=== PATIENT | male | born 1955 | race Caucasian/White ===

== ENCOUNTER → 2016-03-17 | Outpatient (CLI) | payer BC | LOC: OD 09:46 | PROVIDERS: ATTEND Internal Medicine | DX: E03.9 Hypothyroidism, unspecified (principal) | CPT/HCPCS: 36415; 84443 ==

== ENCOUNTER → 2017-04-04 | Outpatient (CLI) | payer BC ==
[2017-04-04 10:56] LABS: ABSOLUTE BASOPHILS # (AUTO) 0.1 10^3/uL (0.0-0.2); ABSOLUTE EOSINOPHILS # (AUTO) 0.1 10^3/uL (0.0-0.6); ABSOLUTE LYMPHOCYTES (AUTO) 3.4 10^3/uL (0.5-4.7); ABSOLUTE MONOCYTES (AUTO) 0.8 10^3/uL (0.1-1.4); ABSOLUTE NEUT (AUTO) 3.2 10^3/uL (1.7-8.2); EOSINOPHILS % (AUTO) 1.8 % (0-6); HEMATOCRIT 44.4 % (37.9-51.0); HEMOGLOBIN 15.5 g/dL (13.5-17.0); LYMPHOCYTES % (AUTO) 45.1 % (13-45); MEAN CORPUSCULAR HEMOGLOBIN 31.9 pg (27.0-33.4); MEAN CORPUSCULAR HGB CONC 34.9 g/dL (32.0-36.0); MEAN CORPUSCULAR VOLUME 92 fl (80-97); PLATELET COUNT 197 10^3/uL (150-450); RED BLOOD COUNT 4.85 10^6/uL (4.35-5.55); RED CELL DISTRIBUTION WIDTH 13.8 % (11.5-14.0); SEGMENTED NEUTROPHILS % (AUTO) 42.1 % (42-78); TOTAL CELLS COUNTED % (AUTO) 100 %; WHITE BLOOD COUNT 7.6 10^3/uL (4.0-10.5)
[2017-04-04 11:18] LABS: ALANINE AMINOTRANSFERASE 28 U/L (21-72); ALBUMIN 4.5 g/dL (3.5-5.0); ALKALINE PHOSPHATASE 43 U/L (38-126); ANION GAP 8 (5-19); ASPARTATE AMINO TRANSFERASE 28 U/L (17-59); BILIRUBIN,DIRECT 0.1 mg/dL (0.0-0.4); BILIRUBIN,TOTAL 0.7 mg/dL (0.2-1.3); BLOOD UREA NITROGEN 9 mg/dL (7-20); CALCIUM 9.9 mg/dL (8.4-10.2); CARBON DIOXIDE 26 mmol/L (22-30); CHLORIDE 106 mmol/L (98-107); CHOLESTEROL 203.33 mg/dL (0-200); GLUCOSE 110 mg/dL (75-110); POTASSIUM 4.4 mmol/L (3.6-5.0); SODIUM 139.9 mmol/L (137-145); TOTAL PROTEIN 7.8 g/dL (6.3-8.2); TRIGLYCERIDES 291 mg/dL (<150)
[2017-04-04 11:30] LABS: DIRECT LDL 107 mg/dL (<100)
[2017-04-04 11:32] LABS: FREE T3 3.46 pg/mL (2.77-5.27); FREE T4 (FREE THYROXINE) 1.24 ng/dL (0.78-2.19)
[2017-04-04 11:45] LABS: THYROID STIMULATING HORMONE 4.62 uIU/mL (0.47-4.68)
[2017-04-04 11:52] LABS: VLDL CHOLESTEROL 58.2 mg/dL (10-31)
[2017-04-05 13:46] LABS: INSULIN 35.1 uIU/mL (2.6-24.9)
== END ==
LOC: OD 10:10
PROVIDERS: ATTEND Internal Medicine
DX: E03.9 Hypothyroidism, unspecified (principal); I10 Essential (primary) hypertension; R53.83 Other fatigue; R35.1 Nocturia; E78.5 Hyperlipidemia, unspecified; R73.9 Hyperglycemia, unspecified
CPT/HCPCS: 36415; 80053; 80061; 83036; 83525; 84153; 84403; 84439; 84443; 84481; 85025

== ENCOUNTER → 2017-07-18 | Outpatient (CLI) | payer BC ==
[2017-07-18 09:04] LABS: CHOLESTEROL 149.15 mg/dL (0-200)
[2017-07-18 09:15] LABS: DIRECT LDL 50 mg/dL (<100)
[2017-07-18 09:28] LABS: TRIGLYCERIDES 725 mg/dL (<150)
== END ==
LOC: OD 07:09
PROVIDERS: ATTEND Internal Medicine
DX: E78.5 Hyperlipidemia, unspecified (principal); E03.9 Hypothyroidism, unspecified
CPT/HCPCS: 36415; 80061; 84443

== ENCOUNTER → 2017-12-26 | Outpatient (CLI) | payer BC ==
--- NOTE | 2017-12-26 10:51 | RADIOLOGY REPORT (SQ) ---
EXAM DESCRIPTION: U/S THYROID/SFT TISS HD NECK COMPLETED DATE/TIME: 12/26/2017 10:10 am REASON FOR STUDY: HYPOTHYROIDISM (E03.9) E03.9 HYPOTHYROIDISM, UNSPECIFIED H93.13 TINNITUS, BILATE RAL COMPARISON: None. TECHNIQUE: Dynamic and static crook-scale images acquired of the thyroid gland. Selected additional c olor/power Doppler images recorded. All images stored to PACS. LIMITATIONS: None. FINDINGS: No thyroid tissue present. No solid or cystic mass or other abnormal ultrasound findings. IMPRESSION: NO THYROID TISSUE PRESENT. TECHNICAL DOCUMENTATION: JOB ID: [id number] [employer]- All Rights Reserved Reading location - IP/workstation name: [email or web address]
--- NOTE | 2017-12-26 13:23 | RADIOLOGY REPORT (SQ) ---
EXAM DESCRIPTION: MRI HEAD COMBO COMPLETED DATE/TIME: 12/26/2017 11:26 am REASON FOR STUDY: TINNITUS OF BOTH EARS (H93.13) E03.9 HYPOTHYROIDISM, UNSPECIFIED H93.13 TINNITUS , BILATERAL COMPARISON: CT BRAIN 09/14/2006 TECHNIQUE: Multiplanar imaging includes noncontrasted T1, T2, FLAIR, diffusion with ADC map and post gadolinium contrast T1 sequences. Additional thin section axial T2 weighted images, additional thin section axial T1 pre and postcontra st images, additional coronal thin section pre [place] contrast T1 weighted images through the risk management internship al auditory canals and inner ear structures. Images stored on PACS. CONTRAST TYPE AND DOSE: 20 mL Dotarem. RENAL FUNCTION: GFR > 60. LIMITATIONS: None. FINDINGS: ANATOMY: No anomalies. Normal vascular flow voids. Pituitary fossa normal. CSF SPACES: Normal in size and contour. No hemorrhage. CEREBRUM: Sulci and gyri normal in size and contour. Normal white matter signal on FLAIR imaging. No evidence of hemorrhage, mass, or extraaxial fluid collection. No abnormal enhancement post contrast. POSTERIOR FOSSA: No signal alteration. No hemorrhage. No edema, masses, or mass effect. Internal geno tory canals, cerebellopontine angles, mastoids normal. No enhancing lesions. No abnormal enhancement post contrast. DIFFUSION IMAGING: Negative for acute or subacute infarction. ORBITS: No masses. Globes normal. PARANASAL SINUSES: No fluid levels. Mucosa normal. OTHER: No other significant finding. IMPRESSION: NORMAL MRI OF THE BRAIN WITHOUT AND WITH INTRAVENOUS GADOLINIUM CONTRAST. EVIDENCE OF ACUTE STROKE: NO. TECHNICAL DOCUMENTATION: JOB ID: [id number] [employer]- All Rights Reserved Reading location - IP/workstation name: [email or web address]
== END ==
LOC: RAD 09:16
PROVIDERS: ATTEND Otolaryngology
DX: E03.9 Hypothyroidism, unspecified (principal); H93.13 Tinnitus, bilateral
CPT/HCPCS: 82565; 70553; 76536; A9576

== ENCOUNTER 2018-05-18 05:21 | Inpatient (IN) | payer BC ==
--- NOTE | 2018-05-11 10:04 | RADIOLOGY REPORT (SQ) ---
EXAM DESCRIPTION: CHEST PA/LATERAL COMPLETED DATE/TIME: 05/11/2018 9:48 am REASON FOR STUDY: PRE-OP COMPARISON: None. TECHNIQUE: Frontal and lateral radiographic views of the chest acquired. NUMBER OF VIEWS: Two view. LIMITATIONS: None. FINDINGS: LUNGS AND PLEURA: Low lung volumes. Associated vascular crowding and suspected subsegment al atelectasis. No acute or suspicious opacities are detected. MEDIASTINUM AND HILAR STRUCTURES: No masses or contour abnormalities. HEART AND VASCULAR STRUCTURES: Heart normal size. No evidence for failure. BONES: No acute findings. HARDWARE: None in the chest. OTHER: No other significant finding. IMPRESSION: Low lung volumes. No acute cardiopulmonary disease or suspicious opacities. TECHNICAL DOCUMENTATION: JOB ID: [id number] [employer]- All Rights Reserved Reading location - IP/workstation name: [email or web address]
[2018-05-11 10:22] LABS: HEMATOCRIT 45.7 % (37.9-51.0); MEAN CORPUSCULAR HEMOGLOBIN 32.1 pg (27.0-33.4); MEAN CORPUSCULAR VOLUME 92 fl (80-97); PLATELET COUNT 186 10^3/uL (150-450); RED BLOOD COUNT 4.99 10^6/uL (4.35-5.55); RED CELL DISTRIBUTION WIDTH 13.4 % (11.5-14.0); WHITE BLOOD COUNT 7.6 10^3/uL (4.0-10.5)
[2018-05-11 10:53] LABS: ANION GAP 8 (5-19); BLOOD UREA NITROGEN 17 mg/dL (7-20); CALCIUM 9.9 mg/dL (8.4-10.2); CARBON DIOXIDE 28 mmol/L (22-30); CHLORIDE 103 mmol/L (98-107); GLUCOSE 113 mg/dL (75-110); POTASSIUM 4.6 mmol/L (3.6-5.0); SODIUM 139.2 mmol/L (137-145)
--- NOTE | 2018-05-11 20:51 | EKG REPORT ---
SEVERITY:- ABNORMAL ECG - SINUS RHYTHM PROBABLE LEFT VENTRICULAR HYPERTROPHY : Confirmed by: Sherry Salas MD 11-May-2018 20:50:36
[~2018-05-18 05:21] MED LIST: CEFOXITIN SODIUM 2 GM in DEXTROSE 5%-WATER 100 ML IV PRN; LACTATED RINGERS 1000 ML IV PRN; LIDOCAINE 0.5% INJ-PF (5 MG/ML) 50 ML SDV SUBCUT PRN
[2018-05-18] MEDS ORDERED: ALBUTEROL SULFATE 0.083% NEB 2.5 MG/3 ML AMPUL NEB ONE (05:42)
[2018-05-18] MEDS ORDERED: HYDROMORPHONE HCL INJ/PF 2 MG/ML AMPULE ONE ×2 (07:02→16:23)
[2018-05-18] MEDS ORDERED: MIDAZOLAM 2 MG/2 ML INJ ONE (07:02)
[2018-05-18] MEDS ORDERED: FENTANYL CITRATE INJ/PF 250 MCG/5 ML AMPULE ONE ×2 (07:02→11:03)
[2018-05-18] MEDS ORDERED: ACETAMINOPHEN 1,000 MG/100 ML RTUPB IV ONE ×2 (07:03→13:44)
[2018-05-18] MEDS ORDERED: PROPOFOL INJ 200 MG/20 ML VIAL IV ONE (07:03)
[2018-05-18] MEDS ORDERED: BUPIVACAINE HCL 0.25 % INJ/PF (2.5 MG/1 ML) 30 ML VIAL ONE (07:17)
[2018-05-18] MEDS ORDERED: EPHEDRINE SULFATE INJ 50 MG/1 ML AMPULE ONE (08:17)
[2018-05-18] MEDS ORDERED: IBUPROFEN INJ 800 MG/8 ML VIAL IV PRN (08:25)
[2018-05-18] MEDS ORDERED: IBUPROFEN 800 MG in NORMAL SALINE 250 ML IV ONE (09:00)
[2018-05-18] MEDS ORDERED: MEPERIDINE HCL/PF INJ 25 MG/1 ML DISP.SYRIN IV PRN (09:38)
[2018-05-18] MEDS ORDERED: MORPHINE SULFATE 10 MG/ML INJ IV PRN ×2 (09:38→13:57)
[2018-05-18] MEDS ORDERED: ONDANSETRON HCL INJ/PF 4 MG/2 ML SDV IV PRN (09:38)
[2018-05-18] MEDS ORDERED: FENTANYL CITRATE INJ/PF 100 MCG/2 ML AMPUL IV PRN ×3 (09:38)
[2018-05-18] MEDS ORDERED: PROMETHAZINE HCL INJ 25 MG/1 ML VIAL IV PRN (09:38)
[2018-05-18] MEDS ORDERED: DIPHENHYDRAMINE HCL 50 MG/ML VIAL IV PRN (09:38)
[2018-05-18] MEDS ORDERED: SUGAMMADEX SODIUM 200 MG/2 ML SDV IV ONE (11:03)
[2018-05-18] MEDS: ONDANSETRON HCL INJ/PF 4 MG/2 ML SDV IV PRN ×2 (15:09→23:07)
[2018-05-18] MEDS ORDERED: VECURONIUM BROMIDE INJ 10 MG VIAL IV ONE ×2 (15:28→15:30)
[2018-05-18] MEDS ORDERED: ONDANSETRON HCL INJ/PF 4 MG/2 ML SDV ONE (15:30)
[2018-05-18] MEDS ORDERED: DEXAMETHASONE SOD PHOSPHATE INJ 4 MG/1 ML VIAL ONE (15:30)
[2018-05-18] MEDS ORDERED: PHENYLEPHRINE HCL INJ/PF 10 MG/1 ML SDV ONE (15:30)
[2018-05-18] MEDS ORDERED: SUCCINYLCHOLINE CHLORIDE INJ 200 MG/10 ML VIAL ONE (15:30)
[2018-05-18] MEDS: CEFOXITIN SODIUM 2 GM in DEXTROSE 5%-WATER 100 ML IV SCH ×2 (16:07→23:13)
[2018-05-18] MEDS ORDERED: HYDROMORPHONE HCL INJ/PF 2 MG/ML AMPULE IV PRN (16:31)
[2018-05-18] MEDS: DEXTROSE 5%-LACTATED RINGERS 1,000 ML IV PRN (18:07)
--- NOTE | 2018-05-18 22:58 | Operative Report ---
Nonrecallable Operative Report DATE OF SURGERY: 05/18/18 PREOPERATIVE DIAGNOSIS: Large adenomatous polyp of the sigmoid/descending colon, not amenable to endoscopic resection POSTOPERATIVE DIAGNOSIS: Same as above OPERATION: 1. Laparoscopic left hemicolectomy. 2. Laparoscopic splenic flexure takedown. 3. Stapled 29 mm EEA colorectal anastomosis. 4. Flexible sigmoidoscopy. SURGEON: TOBIAS FITZPATRICK KNITTER MECHANIC: CRYS QUINONES ANESTHESIA: GA TISSUE REMOVED OR ALTERED: left and sigmoid colon COMPLICATIONS: none apparent ESTIMATED BLOOD LOSS: 50 cc PROCEDURE: Drains/implants: None. Procedure in detail: After informed consent was obtained the patient was brought to the operating room laid in the lithotomy position. The area of the abdomen was prepped and draped in a normal sterile fashion. A supraumbilical incision was created with a 15 blade scalpel. This was deepened using blunt dissection. Linea alba fascia was incised sharply, the abdomen was entered sharply. The balloon trocar was inserted, and pneumoperitoneum was achieved. A right lower quadrant 12 mm port was placed under direct laparoscopic visualization, as well as a suprapubic 5 mm port and a left upper quadrant 5 mm port. Attention was turned to the sigmoid colon. The sigmoid colon was very tortuous. Trendelenburg position was achieved. The sigmoid colon was elevated anteriorly and dissection was begun in the mesentery, at approximately the level of the sacral promontory. The mesentery was entered and blunt dissection was used to elevate the mesentery away from the sacral promontory. A medial to lateral dissection was then undertaken. The ureter was identified and spared from injury. Next the dissection was taken cranially to identify the left colic artery. The left colic artery was isolated and divided at its base using the NIYAH 60 stapler with white loads. The mesentery was divided using the harmonic scalpel up to the splenic flexure. There was some inflammation in the mesentery, however this maneuver was performed without incident. Next, the white line of Toldt on the left was divided, also using the harmonic scalpel. An area at the rectosigmoid junction was chosen for division. The proximal rectum was then divided using the [place] 60 stapler with blue loads. Once this was completed, the left and sigmoid colon was completely freed. Attention was then turned to freeing of the splenic flexure. The splenic flexure was freed from lateral to medial. The omentum was elevated anteriorly and was removed from the transverse colon all the way to the hepatic flexure. Once this was completed, the splenocolic ligament was taken down using the harmonic scalpel. Great care was taken not to injure the spleen during this maneuver. The mobilization was carried medially to free the transverse colon and rotated inferiorly. Once this was completed, pneumoperitoneum was relieved and an incision was created in the lower midline approximately 5 cm in length. The Anand wound retractor was placed into the lower midline incision. The colon was then pulled up through the incision. A Doppler was used to identify a well vascularized portion of the distal transverse colon. The colon was then divided using the [place] 60 stapler. The colon was then passed off the field and sent to pathology. Rectal dilators were then used to size the rectum. The 25, 29, then 33 mm sizers were placed into the rectum. The 29 and 25 passed easily. The 33 mm dilator did not pass all the way to the proximal rectum. A 29 EEA stapler was chosen to create the anastomosis. Metzenbaum scissors were used to remove the recently made staple line in the distal transverse colon. The divided portion of the colon appeared healthy. The edges of the colon were healthy and bleeding. The 29 EEA anvil was then inserted into the distal transverse colon. It was sutured into place using a 3-0 Vicryl pursestring suture. Next the 29 EEA stapler was inserted into the anus. It was passed up the rectum to the staple line. The stapler was opened, deploying the spike through the rectal staple line. The EEA anvil was then attached to the stapler. The stapler was closed and fired according to physician chief of pathology recommendations. The stapler was then removed and opened on the back table. 2 complete donuts of tissue were found within the stapler. These were sent to pathology as well. Next attention was turned to the performing of the flexible sigmoidoscopy. The descending colon was clamped with a bowel clamp and the flexible sigmoidoscope was inserted into the rectum. The scope was passed up to the level of the staple line. Air was insufflated into the rectum until air was found to escape around the scope, out of the anus. No air was found to leak out of the staple line and into the abdominal cavity. The anastomosis was visually inspected internally, and appeared intact. Once this was confirmed, air was suctioned from the rectum and the scope was removed. I then scrubbed back into the case. The lower midline incision was closed with #1 double-stranded looped PDS suture in simple running fashion. Gas insufflation was reattached, and pneumoperitoneum was achieved. The right lower quadrant 12 mm trocar was removed. The fascia was then closed in figure-of- eight fashion using 0 Vicryl suture and the Endo Close device. The 5 mm trochars were removed under direct laparoscopic visualization. No bleeding was noted. The supraumbilical 12 mm trocar was removed, and pneumoperitoneum was relieved. The supraumbilical fascia was closed using 0 Vicryl suture in [id number] fashion under direct vision. The overlying skin was closed using skin joo. Dressings were then fashioned, and the procedure was concluded. All sponge, instrument, and needle counts were correct x2. Condition: Stable. Crys Quinones PA-C was scrubbed and present the entirety of the procedure. She assisted with all portions of the procedure including placement of the trochars, manipulation of the camera, removal of the colon, creation of the anastomosis, closure of the fascia, and closure of the skin.
[2018-05-18] MEDS: HYDROMORPHONE HCL INJ/PF 2 MG/ML AMPULE IV PRN (23:01)
[2018-05-19] MEDS: HYDROMORPHONE HCL INJ/PF 2 MG/ML AMPULE IV PRN ×3 (03:49→20:16)
[2018-05-19] MEDS: ONDANSETRON HCL INJ/PF 4 MG/2 ML SDV IV PRN ×3 (03:49→13:47)
[2018-05-19 06:06] LABS: ABSOLUTE LYMPHOCYTES (AUTO) 1.7 10^3/uL (0.5-4.7); ABSOLUTE MONOCYTES (AUTO) 1.1 10^3/uL (0.1-1.4); ABSOLUTE NEUT (AUTO) 8.3 10^3/uL (1.7-8.2); BASOPHILS % (AUTO) 0.1 % (0-2); HEMOGLOBIN 14.3 g/dL (13.5-17.0); MEAN CORPUSCULAR HEMOGLOBIN 32.2 pg (27.0-33.4); MEAN CORPUSCULAR HGB CONC 34.9 g/dL (32.0-36.0); MEAN CORPUSCULAR VOLUME 92 fl (80-97); MONOCYTES % (AUTO) 10.1 % (3-13); PLATELET COUNT 184 10^3/uL (150-450); RED BLOOD COUNT 4.44 10^6/uL (4.35-5.55); RED CELL DISTRIBUTION WIDTH 13.4 % (11.5-14.0); SEGMENTED NEUTROPHILS % (AUTO) 74.8 % (42-78); TOTAL CELLS COUNTED % (AUTO) 100 %; WHITE BLOOD COUNT 11.1 10^3/uL (4.0-10.5)
[2018-05-19 06:18] LABS: ANION GAP 9 (5-19); BLOOD UREA NITROGEN 15 mg/dL (7-20); CALCIUM 9.4 mg/dL (8.4-10.2); CARBON DIOXIDE 30 mmol/L (22-30); CHLORIDE 99 mmol/L (98-107); GLUCOSE 142 mg/dL (75-110); POTASSIUM 3.9 mmol/L (3.6-5.0); SODIUM 137.5 mmol/L (137-145)
[2018-05-19] MEDS: DEXTROSE 5%-LACTATED RINGERS 1,000 ML IV PRN ×2 (07:33→17:41)
[2018-05-19] MEDS ORDERED: DEXTROSE 40% GEL 15 GM TUBE PO PRN ×2 (09:56)
[2018-05-19] MEDS ORDERED: DEXTROSE 50%-WATER 25 GM/50 ML DISP.SYRIN IV PRN ×2 (09:56)
[2018-05-19] MEDS ORDERED: GLUCAGON,HUMAN RECOMB 1 MG INJ SUBCUT PRN (09:56)
--- NOTE | 2018-05-19 10:20 | PDOC PROGRESS REPORT ---
Subjective Progress Note for:: 05/19/18 Reason For Visit: S/P LEFT HEMICOLECTOMY Physical Exam Vital Signs: Temp Pulse Resp BP Pulse Ox 98.0 F 95 20 141/70 H 94 05/19/18 08:09 05/19/18 08:09 05/19/18 08:09 05/19/18 08:09 05/19/18 08:09 Intake & Output 05/18/18 05/19/18 05/20/18 06:59 06:59 06:59 Intake Total 0 4120 Output Total 1850 Balance 0 2270 Weight 112.8 kg Results Laboratory Results: 05/19/18 05:07 05/19/18 05:07 05/19/18 05/19/18 05:07 05:07 WBC 11.1 H RBC 4.44 Hgb 14.3 Hct 41.0 MCV 92 MCH 32.2 MCHC 34.9 RDW 13.4 Plt Count 184 Seg Neutrophils % 74.8 Lymphocytes % 15.0 Monocytes % 10.1 Eosinophils % 0.0 Basophils % 0.1 Absolute Neutrophils 8.3 H Absolute Lymphocytes 1.7 Absolute Monocytes 1.1 Absolute Eosinophils 0.0 Absolute Basophils 0.0 Sodium 137.5 Potassium 3.9 Chloride 99 Carbon Dioxide 30 Anion Gap 9 BUN 15 Creatinine 0.75 Est GFR ( Amer) > 60 Est GFR (Non-Af Amer) > 60 Glucose 142 H Calcium 9.4 Impressions: Chest X-Ray 05/11/18 09:40 IMPRESSION: Low lung volumes. No acute cardiopulmonary disease or suspicious opacities. Assessment & Plan - Diagnosis (1) Adenomatous polyp of sigmoid colon Is this a current diagnosis for this admission?: Yes - Plan Summary Plan Summary: This is a 63-year-old male status post laparoscopic left hemicolectomy for a large, adenomatous colon polyp unable to be removed via endoscopic methods. The patient was experiencing some nausea last night, and I urged him to decrease his fluid intake. The nurses also educated him regarding judicious intake of oral fluids. The patient has continued to drink large amounts of juice, milk, and water. He is very nauseated this morning. I will make the patient n.p.o. If the patient has significant amounts of vomiting, he may require an NG tube. His abdomen is very distended today. His dressings are currently intact. Out of bed today, ambulate. Incentive spirometer/aggressive pulmonary toilet. N.p.o. until passing flatus.
[2018-05-19] MEDS: OMEGA-3 ACID ETHYL ESTERS 1 GM CAPSULE PO SCH ×2 (10:26→17:22)
[2018-05-19] MEDS: FENOFIBRATE NANOCRYSTALLIZED 145 MG TABLET PO SCH (10:27)
[2018-05-19] MEDS: ENOXAPARIN SODIUM INJ 40 MG/0.4 ML DISP.SYRIN SUBCUT SCH (10:27)
[2018-05-19] MEDS: LEVOTHYROXINE SODIUM 0.1 MG TABLET PO SCH (10:27)
[2018-05-20] MEDS: HYDROMORPHONE HCL INJ/PF 2 MG/ML AMPULE IV PRN ×2 (00:24→04:41)
[2018-05-20] MEDS: ONDANSETRON HCL INJ/PF 4 MG/2 ML SDV IV PRN ×4 (00:28→20:10)
[2018-05-20] MEDS: DEXTROSE 5%-LACTATED RINGERS 1,000 ML IV PRN ×2 (04:54→15:32)
[2018-05-20] MEDS: LEVOTHYROXINE SODIUM 0.1 MG TABLET PO SCH (04:59)
[2018-05-20] MEDS: FENOFIBRATE NANOCRYSTALLIZED 145 MG TABLET PO SCH (10:29)
[2018-05-20] MEDS: HYDROCODONE/ACETAMINOPHEN 10-325 MG TABLET PO PRN ×3 (10:33→20:09)
[2018-05-20] MEDS: OMEGA-3 ACID ETHYL ESTERS 1 GM CAPSULE PO SCH ×2 (10:34→17:54)
[2018-05-20] MEDS: ENOXAPARIN SODIUM INJ 40 MG/0.4 ML DISP.SYRIN SUBCUT SCH (10:34)
--- NOTE | 2018-05-20 11:23 | PDOC PROGRESS REPORT ---
Subjective Progress Note for:: 05/20/18 Subjective:: Reports no nausea or vomiting; Parekh catheter still in; required some oxygen nasal cannula supplementation for low sats. Reason For Visit: S/P LEFT HEMICOLECTOMY Physical Exam Vital Signs: Temp Pulse Resp BP Pulse Ox 97.6 F 84 18 148/77 H 97 05/20/18 07:14 05/20/18 07:14 05/20/18 07:14 05/20/18 07:14 05/20/18 07:14 Intake & Output 05/19/18 05/20/18 05/21/18 06:59 06:59 06:59 Intake Total 4120 2000 Output Total 1850 1300 Balance 2270 700 Weight 112.8 kg 111.1 kg General appearance: PRESENT: no acute distress GI/Abdominal exam: PRESENT: other - Incisions covered and healing satisfactorily Results Laboratory Results: 05/19/18 05:07 05/19/18 05:07 Impressions: Chest X-Ray 05/11/18 09:40 IMPRESSION: Low lung volumes. No acute cardiopulmonary disease or suspicious opacities. Assessment & Plan - Diagnosis (1) Adenomatous polyp of sigmoid colon Is this a current diagnosis for this admission?: Yes Plan: Impression: Patient is 2 days status post a laparoscopic left hemicolectomy, doing reasonably well; await ileus resolution Recommendations: 1. We will discontinue Parekh catheter 2. Will wean off oxygen as tolerated 3. Await flatus, then start clear liquids
[2018-05-21] MEDS: ONDANSETRON HCL INJ/PF 4 MG/2 ML SDV IV PRN ×3 (00:26→09:24)
[2018-05-21] MEDS: HYDROCODONE/ACETAMINOPHEN 10-325 MG TABLET PO PRN ×3 (00:29→09:23)
[2018-05-21] MEDS: LEVOTHYROXINE SODIUM 0.1 MG TABLET PO SCH (05:07)
[2018-05-21] MEDS: DEXTROSE 5%-LACTATED RINGERS 1,000 ML IV PRN ×2 (05:07→16:38)
[2018-05-21] MEDS: OMEGA-3 ACID ETHYL ESTERS 1 GM CAPSULE PO SCH (09:23)
[2018-05-21] MEDS: ENOXAPARIN SODIUM INJ 40 MG/0.4 ML DISP.SYRIN SUBCUT SCH (09:24)
[2018-05-21] MEDS: FENOFIBRATE NANOCRYSTALLIZED 145 MG TABLET PO SCH (09:25)
[2018-05-21] MEDS ORDERED: PHARMACY COMMUNICATION ORDER MC NR (12:00)
--- NOTE | 2018-05-21 14:47 | RADIOLOGY REPORT (SQ) ---
EXAM DESCRIPTION: KUB/ABDOMEN (SINGLE VIEW) COMPLETED DATE/TIME: 05/21/2018 2:40 pm REASON FOR STUDY: Check Placement of NG Tube D12.5 BENIGN NEOPLASM OF SIGMOID COLON COMPARISON: None. NUMBER OF VIEWS: One view. TECHNIQUE: Supine radiographic image of the abdomen acquired. LIMITATIONS: None. FINDINGS: BOWEL GAS PATTERN: Limited view the abdomen was submitted NG tube is in place. Catheter t ip lies just below the GE junction. There is small-bowel distention consistent with ileus or small-b owel obstruction. CALCIFICATIONS: No suspicious calcifications. SOFT TISSUES: No gross mass or suggestion of organomegaly. HARDWARE: Surgical clips are pleasant the right lower quadrant. BONES: No acute fracture. No worrisome bone lesions. OTHER: Probable small effusions and basilar atelectasis. IMPRESSION: NG tube is been placed. Tip lies just below the GE junction. TECHNICAL DOCUMENTATION: JOB ID: [id number] [employer]- All Rights Reserved Reading location - IP/workstation name: [email or web address]
--- NOTE | 2018-05-21 16:17 | PDOC PROGRESS REPORT ---
Subjective Progress Note for:: 05/21/18 Reason For Visit: S/P LEFT HEMICOLECTOMY Physical Exam Vital Signs: Temp Pulse Resp BP Pulse Ox 98.0 F 86 20 154/75 H 94 05/21/18 11:07 05/21/18 11:07 05/21/18 11:07 05/21/18 11:07 05/21/18 11:27 Intake & Output 05/20/18 05/21/18 05/22/18 06:59 06:59 06:59 Intake Total 2000 2000 Output Total 1300 1300 1900 Balance 700 700 -1900 Weight 111.1 kg 112.6 kg 112.6 kg Results Laboratory Results: 05/19/18 05:07 05/19/18 05:07 Impressions: Chest X-Ray 05/11/18 09:40 IMPRESSION: Low lung volumes. No acute cardiopulmonary disease or suspicious opacities. KUB X-Ray 05/21/18 11:59 IMPRESSION: NG tube is been placed. Tip lies just below the GE junction. Assessment & Plan - Diagnosis (1) Adenomatous polyp of sigmoid colon Is this a current diagnosis for this admission?: Yes - Plan Summary Plan Summary: This is a 63-year-old male status post laparoscopic left hemicolectomy. His abdomen is very distended today. He reports multiple episodes of emesis overnight. I believe the patient is developing an ileus. I have recommended an NG tube to prevent his persistent vomiting. The patient has agreed to this. Continue NG tube until bowel function resumes. Ice chips and popsicles are okay. Out of bed, pulmonary toilet. Discontinue Parekh. Repeat labs tomorrow.
--- NOTE | 2018-05-21 17:14 | RADIOLOGY REPORT (SQ) ---
EXAM DESCRIPTION: KUB/ABDOMEN (SINGLE VIEW) COMPLETED DATE/TIME: 05/21/2018 4:59 pm REASON FOR STUDY: ng tube placement D12.5 BENIGN NEOPLASM OF SIGMOID COLON COMPARISON: 05/21/2018 NUMBER OF VIEWS: One view. TECHNIQUE: Supine radiographic image of the abdomen acquired. LIMITATIONS: [id number] FINDINGS: BOWEL GAS PATTERN: Multiple dilated loops small bowel consistent with ileus or obstruction CALCIFICATIONS: No suspicious calcifications. SOFT TISSUES: No gross mass or suggestion of organomegaly. HARDWARE: Surgical clips and joo are present BONES: No acute fracture. No worrisome bone lesions. OTHER: There is an enteric tube seen in the upper left corner of the image however the diaphragms not visualized. Presumably the tube tip projects over the stomach but this cannot be confirmed. Presum ed urinary catheter projects over the expected region of the bladder. IMPRESSION: Enteric tube seen in the low upper left corner of the image and presumably projects over the stomach, however this cannot be confirmed with the limited field of view of this study. TECHNICAL DOCUMENTATION: JOB ID: [id number] [employer]- All Rights Reserved Reading location - IP/workstation name: [email or web address]
[2018-05-22 05:51] LABS: ABSOLUTE LYMPHOCYTES (AUTO) 1.6 10^3/uL (0.5-4.7); ABSOLUTE MONOCYTES (AUTO) 0.6 10^3/uL (0.1-1.4); ABSOLUTE NEUT (AUTO) 6.7 10^3/uL (1.7-8.2); BASOPHILS % (AUTO) 0.1 % (0-2); EOSINOPHILS % (AUTO) 0.1 % (0-6); HEMATOCRIT 41.2 % (37.9-51.0); HEMOGLOBIN 14.3 g/dL (13.5-17.0); LYMPHOCYTES % (AUTO) 18.3 % (13-45); MEAN CORPUSCULAR HGB CONC 34.8 g/dL (32.0-36.0); MEAN CORPUSCULAR VOLUME 92 fl (80-97); MONOCYTES % (AUTO) 6.3 % (3-13); PLATELET COUNT 192 10^3/uL (150-450); RED BLOOD COUNT 4.46 10^6/uL (4.35-5.55); RED CELL DISTRIBUTION WIDTH 13.3 % (11.5-14.0); SEGMENTED NEUTROPHILS % (AUTO) 75.2 % (42-78); TOTAL CELLS COUNTED % (AUTO) 100 %; WHITE BLOOD COUNT 8.9 10^3/uL (4.0-10.5)
[2018-05-22] MEDS: DEXTROSE 5%-LACTATED RINGERS 1,000 ML IV PRN ×3 (06:03→21:58)
[2018-05-22] MEDS: LEVOTHYROXINE SODIUM 0.1 MG TABLET NG SCH (06:11)
[2018-05-22 06:28] LABS: ANION GAP 6 (5-19); BLOOD UREA NITROGEN 17 mg/dL (7-20); CALCIUM 8.7 mg/dL (8.4-10.2); CARBON DIOXIDE 35 mmol/L (22-30); CHLORIDE 98 mmol/L (98-107); GLUCOSE 139 mg/dL (75-110); POTASSIUM 3.5 mmol/L (3.6-5.0); SODIUM 138.7 mmol/L (137-145)
[2018-05-22] MEDS: HYDROCODONE/ACETAMINOPHEN 10-325 MG TABLET NG PRN (08:03)
[2018-05-22] MEDS ORDERED: POTASSI CL 20 MEQ/50 ML RIDER 20 MEQ/50 ML RTUPB IV ONE (09:30)
[2018-05-22] MEDS: FENOFIBRATE NANOCRYSTALLIZED 145 MG TABLET NG SCH (09:40)
[2018-05-22] MEDS: ENOXAPARIN SODIUM INJ 40 MG/0.4 ML DISP.SYRIN SUBCUT SCH (09:57)
--- NOTE | 2018-05-22 11:03 | PDOC PROGRESS REPORT ---
Subjective Progress Note for:: 05/22/18 Reason For Visit: S/P LEFT HEMICOLECTOMY Physical Exam Vital Signs: Temp Pulse Resp BP Pulse Ox 98.3 F 90 18 141/67 H 95 05/22/18 07:33 05/22/18 07:33 05/22/18 07:33 05/22/18 07:33 05/22/18 07:33 Intake & Output 05/21/18 05/22/18 05/23/18 06:59 06:59 06:59 Intake Total 2000 2000 Output Total 1300 5000 Balance 700 -3000 Weight 112.7 kg 112.6 kg Results Laboratory Results: 05/22/18 04:20 05/22/18 04:20 05/22/18 05/22/18 04:20 04:20 WBC 8.9 RBC 4.46 Hgb 14.3 Hct 41.2 MCV 92 MCH 32.0 MCHC 34.8 RDW 13.3 Plt Count 192 Seg Neutrophils % 75.2 Lymphocytes % 18.3 Monocytes % 6.3 Eosinophils % 0.1 Basophils % 0.1 Absolute Neutrophils 6.7 Absolute Lymphocytes 1.6 Absolute Monocytes 0.6 Absolute Eosinophils 0.0 Absolute Basophils 0.0 Sodium 138.7 Potassium 3.5 L Chloride 98 Carbon Dioxide 35 H Anion Gap 6 BUN 17 Creatinine 0.74 Est GFR ( Amer) > 60 Est GFR (Non-Af Amer) > 60 Glucose 139 H Calcium 8.7 Impressions: Chest X-Ray 05/11/18 09:40 IMPRESSION: Low lung volumes. No acute cardiopulmonary disease or suspicious opacities. KUB X-Ray 05/21/18 11:59 IMPRESSION: NG tube is been placed. Tip lies just below the GE junction. Assessment & Plan - Diagnosis (1) Adenomatous polyp of sigmoid colon Is this a current diagnosis for this admission?: Yes - Plan Summary Plan Summary: This is a 63-year-old male status post laparoscopic left hemicolectomy. Patient feels much better after NG decompression. He reports passing large amounts of flatus last night and this morning. He has been out of bed, and is urinating without difficulty. D/C NG tube. Maintain patient on ice chips. Out of bed. Aggressive pulmonary toilet.
[2018-05-23] MEDS: DEXTROSE 5%-LACTATED RINGERS 1,000 ML IV PRN (04:50)
[2018-05-23] MEDS: LEVOTHYROXINE SODIUM 0.1 MG TABLET NG SCH (05:12)
[2018-05-23 06:33] LABS: ANION GAP 9 (5-19); BLOOD UREA NITROGEN 17 mg/dL (7-20); CALCIUM 9.1 mg/dL (8.4-10.2); CARBON DIOXIDE 35 mmol/L (22-30); CHLORIDE 95 mmol/L (98-107); GLUCOSE 110 mg/dL (75-110); POTASSIUM 3.2 mmol/L (3.6-5.0)
[2018-05-23] MEDS: HYDROCODONE/ACETAMINOPHEN 10-325 MG TABLET NG PRN ×2 (08:19→23:47)
[2018-05-23] MEDS: ENOXAPARIN SODIUM INJ 40 MG/0.4 ML DISP.SYRIN SUBCUT SCH (09:34)
[2018-05-23] MEDS: FENOFIBRATE NANOCRYSTALLIZED 145 MG TABLET NG SCH (09:36)
--- NOTE | 2018-05-23 10:07 | PDOC PROGRESS REPORT ---
<CRYS QUINONES G - Last Filed: 05/23/18 10:01> Subjective Reason For Visit: S/P LEFT HEMICOLECTOMY Physical Exam Vital Signs: Temp Pulse Resp BP Pulse Ox 97.7 F 69 18 152/68 H 93 05/23/18 07:22 05/23/18 07:22 05/23/18 07:22 05/23/18 07:22 05/23/18 07:22 Intake & Output 05/22/18 05/23/18 05/24/18 06:59 06:59 06:59 Intake Total 1999 3049 Output Total 5000 1000 Balance -3000 2049 Weight 112.6 kg 112 kg Results Laboratory Results: 05/22/18 04:20 05/23/18 04:59 05/23/18 04:59 Sodium 139.0 Potassium 3.2 L Chloride 95 L Carbon Dioxide 35 H Anion Gap 9 BUN 17 Creatinine 0.85 Est GFR ( Amer) > 60 Est GFR (Non-Af Amer) > 60 Glucose 110 Calcium 9.1 Impressions: Chest X-Ray 05/11/18 09:40 IMPRESSION: Low lung volumes. No acute cardiopulmonary disease or suspicious opacities. KUB X-Ray 05/21/18 11:59 IMPRESSION: NG tube is been placed. Tip lies just below the GE junction. Assessment & Plan - Plan Summary Plan Summary: Cristóbal Estes is a 63 y/o male s/p left hemicolectomy with minimal incision pain and abdominal distention. Had BM last night and this morning. Is passing flatus. Currently only on ice chips and would like to progress his diet to full liquids. Denies nausea/vomiting. Progress diet to full liquid. Continue to ambulate. <TOBIAS OVIEDO L - Last Filed: 05/23/18 18:08> Subjective Reason For Visit: S/P LEFT HEMICOLECTOMY Physical Exam Vital Signs: Temp Pulse Resp BP Pulse Ox 98.0 F 73 18 137/74 H 93 05/23/18 15:27 05/23/18 15:27 05/23/18 15:27 05/23/18 15:27 05/23/18 15:27 Intake & Output 05/22/18 05/23/18 05/24/18 06:59 06:59 06:59 Intake Total 1999 3049 1000 Output Total 5000 1000 Balance -3000 2049 1000 Weight 112.6 kg 112 kg 112 kg Results Laboratory Results: 05/22/18 04:20 05/23/18 04:59 05/23/18 04:59 Sodium 139.0 Potassium 3.2 L Chloride 95 L Carbon Dioxide 35 H Anion Gap 9 BUN 17 Creatinine 0.85 Est GFR ( Amer) > 60 Est GFR (Non-Af Amer) > 60 Glucose 110 Calcium 9.1 Impressions: Chest X-Ray 05/11/18 09:40 IMPRESSION: Low lung volumes. No acute cardiopulmonary disease or suspicious opacities. KUB X-Ray 05/21/18 11:59 IMPRESSION: NG tube is been placed. Tip lies just below the GE junction. Assessment & Plan - Diagnosis (1) Adenomatous polyp of sigmoid colon Is this a current diagnosis for this admission?: Yes - Plan Summary Plan Summary: I have personally interviewed and examined this patient. I agree with the above documentation by Crys Quinones PA-C. This is a 63-year-old male status post left hemicolectomy. He is passing flatus. Advance to full liquid diet. Ambulate/pulmonary toilet.
[2018-05-24] MEDS: ONDANSETRON HCL INJ/PF 4 MG/2 ML SDV IV PRN (02:28)
[2018-05-24] MEDS: HYDROCODONE/ACETAMINOPHEN 10-325 MG TABLET NG PRN (04:29)
[2018-05-24] MEDS: LEVOTHYROXINE SODIUM 0.1 MG TABLET NG SCH (06:13)
[2018-05-24 06:42] LABS: ANION GAP 11 (5-19); BLOOD UREA NITROGEN 20 mg/dL (7-20); CARBON DIOXIDE 33 mmol/L (22-30); CHLORIDE 93 mmol/L (98-107); GLUCOSE 114 mg/dL (75-110); SODIUM 136.5 mmol/L (137-145)
[2018-05-24 06:53] LABS: POTASSIUM 2.8 mmol/L (3.6-5.0)
--- NOTE | 2018-05-24 07:04 | PDOC PROGRESS REPORT ---
Subjective Progress Note for:: 05/24/18 Reason For Visit: S/P LEFT HEMICOLECTOMY Physical Exam Vital Signs: Temp Pulse Resp BP Pulse Ox 97.5 F 91 19 146/68 H 96 05/24/18 00:43 05/24/18 00:43 05/24/18 00:43 05/24/18 00:43 05/24/18 00:43 Intake & Output 05/23/18 05/24/18 05/25/18 06:59 06:59 06:59 Intake Total 3050 1000 Output Total 1000 Balance 205 1000 Weight 112 kg 111.7 kg Results Laboratory Results: 05/22/18 04:20 05/24/18 05:03 05/24/18 05:03 Sodium 136.5 L Potassium 2.8 L* Chloride 93 L Carbon Dioxide 33 H Anion Gap 11 BUN 20 Creatinine 0.74 Est GFR ( Amer) > 60 Est GFR (Non-Af Amer) > 60 Glucose 114 H Calcium 9.0 Impressions: Chest X-Ray 05/11/18 09:40 IMPRESSION: Low lung volumes. No acute cardiopulmonary disease or suspicious opacities. KUB X-Ray 05/21/18 11:59 IMPRESSION: NG tube is been placed. Tip lies just below the GE junction. Assessment & Plan - Diagnosis (1) Adenomatous polyp of sigmoid colon Is this a current diagnosis for this admission?: Yes - Plan Summary Plan Summary: 63-year-old male status post laparoscopic left hemicolectomy. The patient remains distended today, but continues to have bowel movements. He denies nausea or vomiting. Hypokalemia: Replace. Check magnesium. Ambulate/pulmonary toilet. Continue liquid diet until abdomen less distended.
[2018-05-24] MEDS: POTASSI CL 20 MEQ/50 ML RIDER 20 MEQ/50 ML RTUPB IV SCH ×5 (08:30→23:07)
[2018-05-24] MEDS: ENOXAPARIN SODIUM INJ 40 MG/0.4 ML DISP.SYRIN SUBCUT SCH (09:30)
[2018-05-24] MEDS: FENOFIBRATE NANOCRYSTALLIZED 145 MG TABLET NG SCH (09:33)
[2018-05-24] MEDS ORDERED: ONDANSETRON HCL INJ/PF 4 MG/2 ML SDV IV PRN (15:30)
[2018-05-25] MEDS: LEVOTHYROXINE SODIUM 0.1 MG TABLET NG SCH (06:03)
[2018-05-25 07:06] LABS: ANION GAP 8 (5-19); BLOOD UREA NITROGEN 15 mg/dL (7-20); CARBON DIOXIDE 27 mmol/L (22-30); CHLORIDE 101 mmol/L (98-107); GLUCOSE 92 mg/dL (75-110); POTASSIUM 3.1 mmol/L (3.6-5.0); SODIUM 135.6 mmol/L (137-145)
[2018-05-25] MEDS: POTASSI CL 20 MEQ/50 ML RIDER 20 MEQ/50 ML RTUPB IV SCH ×2 (08:02→11:42)
[2018-05-25] MEDS: ENOXAPARIN SODIUM INJ 40 MG/0.4 ML DISP.SYRIN SUBCUT SCH (09:36)
[2018-05-25] MEDS: FENOFIBRATE NANOCRYSTALLIZED 145 MG TABLET NG SCH (09:37)
--- NOTE | 2018-05-25 10:49 | PDOC PROGRESS REPORT ---
Subjective Progress Note for:: 05/25/18 Reason For Visit: S/P LEFT HEMICOLECTOMY Physical Exam Vital Signs: Temp Pulse Resp BP Pulse Ox 98.1 F 81 20 142/70 H 94 05/25/18 07:18 05/25/18 07:18 05/25/18 07:18 05/25/18 07:18 05/25/18 07:18 Intake & Output 05/24/18 05/25/18 05/26/18 06:59 06:59 06:59 Intake Total 1000 2006 Balance 1000 2006 Weight 111.7 kg 112.2 kg 112.2 kg Results Laboratory Results: 05/22/18 04:20 05/25/18 04:48 05/24/18 05/25/18 16:08 04:48 Sodium 135.6 L Potassium 3.3 L 3.1 L Chloride 101 Carbon Dioxide 27 Anion Gap 8 BUN 15 Creatinine 0.73 Est GFR ( Amer) > 60 Est GFR (Non-Af Amer) > 60 Glucose 92 Calcium 8.0 L Impressions: Chest X-Ray 05/11/18 09:40 IMPRESSION: Low lung volumes. No acute cardiopulmonary disease or suspicious opacities. KUB X-Ray 05/21/18 11:59 IMPRESSION: NG tube is been placed. Tip lies just below the GE junction. Assessment & Plan - Diagnosis (1) Adenomatous polyp of sigmoid colon Is this a current diagnosis for this admission?: Yes - Plan Summary Plan Summary: This is a 63-year-old male status post a laparoscopic left hemicolectomy. The patient is doing well today. He continues to have bowel movements. His abdomen is less distended. He is hungry. He denies nausea or vomiting. He is afebrile and his vital signs are stable. His abdominal pain is controlled. Hypokalemia: Replaced today. Diarrhea: Add fiber supplements. Advance to regular diet. Home soon.
[2018-05-25] MEDS: PSYLLIUM SEED-SF 5.85 GM PACKET PO SCH ×2 (11:42→17:05)
[2018-05-26] MEDS: LEVOTHYROXINE SODIUM 0.1 MG TABLET NG SCH (06:35)
[2018-05-26 07:11] LABS: ABSOLUTE EOSINOPHILS # (AUTO) 0.2 10^3/uL (0.0-0.6); ABSOLUTE LYMPHOCYTES (AUTO) 2.2 10^3/uL (0.5-4.7); ABSOLUTE NEUT (AUTO) 4.9 10^3/uL (1.7-8.2); BASOPHILS % (AUTO) 0.2 % (0-2); EOSINOPHILS % (AUTO) 2.4 % (0-6); HEMATOCRIT 36.3 % (37.9-51.0); HEMOGLOBIN 12.7 g/dL (13.5-17.0); LYMPHOCYTES % (AUTO) 26.5 % (13-45); MEAN CORPUSCULAR HGB CONC 34.9 g/dL (32.0-36.0); MEAN CORPUSCULAR VOLUME 92 fl (80-97); MONOCYTES % (AUTO) 11.6 % (3-13); PLATELET COUNT 200 10^3/uL (150-450); RED BLOOD COUNT 3.97 10^6/uL (4.35-5.55); RED CELL DISTRIBUTION WIDTH 13.2 % (11.5-14.0); SEGMENTED NEUTROPHILS % (AUTO) 59.3 % (42-78); TOTAL CELLS COUNTED % (AUTO) 100 %; WHITE BLOOD COUNT 8.3 10^3/uL (4.0-10.5)
[2018-05-26 07:23] LABS: ANION GAP 8 (5-19); BLOOD UREA NITROGEN 8 mg/dL (7-20); CARBON DIOXIDE 26 mmol/L (22-30); CHLORIDE 100 mmol/L (98-107); GLUCOSE 90 mg/dL (75-110); SODIUM 134.1 mmol/L (137-145)
[2018-05-26] MEDS ORDERED: POTASSIUM CHLORIDE 10 MEQ CAPSULE.ER PO ONE (08:00)
[2018-05-26] MEDS: POTASSIUM CHLORIDE 20 MEQ/50 ML RTU IV SCH ×2 (08:37→13:00)
--- NOTE | 2018-05-26 09:24 | PDOC PROGRESS REPORT ---
Subjective Progress Note for:: 05/26/18 Subjective:: feels well ]brent reg diet, having bm's Reason For Visit: S/P LEFT HEMICOLECTOMY post op Physical Exam Vital Signs: Temp Pulse Resp BP Pulse Ox 98.6 F 72 19 154/67 H 95 05/26/18 00:00 05/26/18 00:00 05/26/18 00:00 05/26/18 00:00 05/26/18 00:00 Intake & Output 05/25/18 05/26/18 05/27/18 06:59 06:59 06:59 Intake Total 2006 600 Balance 2006 600 Weight 112.2 kg 114.4 kg General appearance: PRESENT: no acute distress Head exam: PRESENT: normocephalic Eye exam: PRESENT: conjunctiva pink Neck exam: PRESENT: full ROM Respiratory exam: PRESENT: clear to auscultation olivia Cardiovascular exam: PRESENT: RRR Pulses: PRESENT: normal femoral pulses, normal dorsalis pedis pul GI/Abdominal exam: PRESENT: soft, other - lower midline incision, erythematous, celllulitic sl fluctuant Rectal exam: PRESENT: deferred Extremities exam: PRESENT: full ROM Musculoskeletal exam: PRESENT: ambulatory, full ROM Neurological exam: PRESENT: alert, awake, oriented to person, oriented to place, oriented to time, oriented to situation Psychiatric exam: PRESENT: appropriate affect Skin exam: PRESENT: dry Results Laboratory Results: 05/26/18 06:04 05/26/18 06:04 05/26/18 05/26/18 06:04 06:04 WBC 8.3 RBC 3.97 L Hgb 12.7 L Hct 36.3 L MCV 92 MCH 32.0 MCHC 34.9 RDW 13.2 Plt Count 200 Seg Neutrophils % 59.3 Lymphocytes % 26.5 Monocytes % 11.6 Eosinophils % 2.4 Basophils % 0.2 Absolute Neutrophils 4.9 Absolute Lymphocytes 2.2 Absolute Monocytes 1.0 Absolute Eosinophils 0.2 Absolute Basophils 0.0 Sodium 134.1 L Potassium 3.0 L* Chloride 100 Carbon Dioxide 26 Anion Gap 8 BUN 8 Creatinine 0.68 Est GFR ( Amer) > 60 Est GFR (Non-Af Amer) > 60 Glucose 90 Calcium 8.0 L Impressions: Chest X-Ray 05/11/18 09:40 IMPRESSION: Low lung volumes. No acute cardiopulmonary disease or suspicious opacities. KUB X-Ray 05/21/18 11:59 IMPRESSION: NG tube is been placed. Tip lies just below the GE junction. Assessment & Plan - Plan Summary Plan Summary: s/p left hemicolectomy,laparoscopic doing well today noted to have hypokalemia, rx iwth po and iv k replacemt lower midline incision, fluctuant. will remove 1 or 2 joo from lower midline wound.
[2018-05-26] MEDS: FENOFIBRATE NANOCRYSTALLIZED 145 MG TABLET NG SCH (10:45)
[2018-05-26] MEDS: PSYLLIUM SEED-SF 5.85 GM PACKET PO SCH ×2 (10:45→17:28)
[2018-05-26] MEDS: ENOXAPARIN SODIUM INJ 40 MG/0.4 ML DISP.SYRIN SUBCUT SCH (10:45)
[2018-05-27] MEDS: LEVOTHYROXINE SODIUM 0.1 MG TABLET NG SCH (05:55)
[2018-05-27] MEDS: ENOXAPARIN SODIUM INJ 40 MG/0.4 ML DISP.SYRIN SUBCUT SCH (09:29)
[2018-05-27] MEDS: FENOFIBRATE NANOCRYSTALLIZED 145 MG TABLET NG SCH (09:30)
[2018-05-27] MEDS: PSYLLIUM SEED-SF 5.85 GM PACKET PO SCH (09:30)
[2018-05-27 11:14] LABS: ANION GAP 8 (5-19); BLOOD UREA NITROGEN 7 mg/dL (7-20); CALCIUM 8.4 mg/dL (8.4-10.2); CARBON DIOXIDE 28 mmol/L (22-30); CHLORIDE 101 mmol/L (98-107); GLUCOSE 97 mg/dL (75-110); POTASSIUM 3.4 mmol/L (3.6-5.0); SODIUM 137.1 mmol/L (137-145)
--- NOTE | 2018-05-27 12:11 | Discharge Summary ---
Discharge Summary (SDC) - Discharge Final Diagnosis: adenomatous polyp colon Date of Surgery: 05/18/18 Condition: Good Treatment or Instructions: wash wound in shower daily Referrals: TOBIAS BUSYB MD [ACTIVE STAFF] - 05/31/18 9:15 am Discharge Diet: As Tolerated Discharge Activity: Activity As Tolerated, No Lifting Over 10 Pounds, Walk Frequently Home Care Assistance: None Needed Report the Following to Your Physician Immediately: Shortness of Breath, Nausea, Vomiting, Increase in Pain, Fever over 101 Degrees, Unusual Bleeding, Redness - pt need a f/u with Dr Busby this week
--- NOTE | 2018-05-27 12:14 | PDOC PROGRESS REPORT ---
Subjective Progress Note for:: 05/27/18 Reason For Visit: S/P LEFT HEMICOLECTOMY Physical Exam Vital Signs: Temp Pulse Resp BP Pulse Ox 97.9 F 70 21 H 149/66 H 96 05/27/18 08:01 05/27/18 08:01 05/27/18 08:01 05/27/18 08:01 05/27/18 08:01 Intake & Output 05/26/18 05/27/18 05/28/18 06:59 06:59 06:59 Intake Total 600 2047 Balance 600 2047 Weight 114.4 kg 111.5 kg General appearance: PRESENT: no acute distress Head exam: PRESENT: normocephalic Eye exam: PRESENT: EOMI Mouth exam: PRESENT: dry mucosa Neck exam: PRESENT: full ROM Respiratory exam: PRESENT: clear to auscultation olivia Cardiovascular exam: PRESENT: RRR Pulses: PRESENT: normal radial pulses, normal femoral pulses Vascular exam: PRESENT: normal capillary refill GI/Abdominal exam: PRESENT: other - lower abd wound improved cellulitis resolved packing removed, dry gauze placed on wound Extremities exam: PRESENT: full ROM Musculoskeletal exam: PRESENT: ambulatory, full ROM Psychiatric exam: PRESENT: appropriate affect Skin exam: PRESENT: dry - pt examined this am his lower abd wound improved the packing was removed pt instructed to wash wound q day in shower place dry gauze on top pt will f/u with Dr Busby this comming week ok to dc home Results Laboratory Results: 05/26/18 06:04 05/27/18 10:28 05/27/18 10:28 Sodium 137.1 Potassium 3.4 L Chloride 101 Carbon Dioxide 28 Anion Gap 8 BUN 7 Creatinine 0.66 Est GFR ( Amer) > 60 Est GFR (Non-Af Amer) > 60 Glucose 97 Calcium 8.4 Impressions: Chest X-Ray 05/11/18 09:40 IMPRESSION: Low lung volumes. No acute cardiopulmonary disease or suspicious opacities. KUB X-Ray 05/21/18 11:59 IMPRESSION: NG tube is been placed. Tip lies just below the GE junction.
[2018-05-27 13:44] VITALS: BP 160/71
--- NOTE | 2018-06-11 16:21 | PDOC DISCHARGE SUMMARY ---
General - Admit/Disc Date/PCP Admission Date/Primary Care Provider: 05/18/18 05:21 DYLAN EASTMAN MD Discharge Date: 05/27/18 - Discharge Diagnosis (1) Adenomatous polyp of sigmoid colon Is this a current diagnosis for this admission?: Yes - Additional Information Resuscitation Status: Full Code Discharge Diet: As Tolerated Discharge Activity: Activity As Tolerated, No Lifting Over 10 Pounds, Walk Frequently Home Medications: Fenofibrate Nanocrystallized [Triglide] 160 mg PO DAILY 05/18/18 Levothyroxine Sodium [Synthroid] 200 mcg PO Q6AM 05/18/18 [place]-3 Acid Ethyl Esters [Lovaza 1 gm Capsule] 2 gm PO BID 05/18/18 History of Present Illness History of Present Illness: HERVE CANELA is a 63 year old male with a large polyp of the sigmoid colon, not completely removed via endoscopic methods. The patient was scheduled for laparoscopic left hemicolectomy. The patient was brought to the hospital and underwent laparoscopic left hemicolectomy. He was transferred to the floor in stable condition. Hospital Course Hospital Course: Patient was taken to the floor after laparoscopic left hemicolectomy. The patient became distended and nauseated on postoperative day 1, and an NG tube was placed. Patient began having bowel function, his NG tube was removed, and he was started on liquids. The patient began tolerating liquids, and then a regular diet. Patient began having bowel movements. By 05/27/2018 the patient was ambulating, tolerating a diet, taking oral pain medications, and it was felt that he had reached maximal hospital benefit and was fit for discharge. Physical Exam Vital Signs: Temp Pulse Resp BP Pulse Ox 97.8 F 68 20 160/71 H 98 05/27/18 13:39 05/27/18 13:39 05/27/18 13:39 05/27/18 13:39 05/27/18 13:39 Results Laboratory Results: 05/26/18 06:04 05/27/18 10:28 Impressions: Chest X-Ray 05/11/18 09:40 IMPRESSION: Low lung volumes. No acute cardiopulmonary disease or suspicious opacities. KUB X-Ray 05/21/18 11:59 IMPRESSION: NG tube is been placed. Tip lies just below the GE junction. Qualifiers - * PATIENT BEING DISCHARGED WITH ANY OF THE FOLLOWING DIAGNOSIS: No Plan Discharge Plan: Discharge home. Diet as tolerated. Activity: No lifting greater than 10 pounds x 6 weeks after surgery. Follow-up with me in 7-10 days. Time Spent: Less than 30 Minutes
== END 2018-05-27 13:35 | disposition home or self-care (01) | DRG 330 ==
LOC: INOR 05:21 → EDSTATUS 07:30 → 4N 14:57
PROVIDERS: ADMIT Surgery; ATTEND Surgery
PROC: 0DJD8ZZ Inspection of Lower Intestinal Tract, Via Natural or Artificial Opening Endoscopic (ICD-10-PCS; 2018-05-18)
PROC: 0DTG4ZZ Resection of Left Large Intestine, Percutaneous Endoscopic Approach (ICD-10-PCS; principal; 2018-05-18 07:30)
PROC: 0D9670Z Drainage of Stomach with Drainage Device, Via Natural or Artificial Opening (ICD-10-PCS; 2018-05-21)
DX: D12.5 Benign neoplasm of sigmoid colon (principal); K56.7 Ileus, unspecified; E03.9 Hypothyroidism, unspecified; E78.00 Pure hypercholesterolemia, unspecified; I10 Essential (primary) hypertension; Z90.49 Acquired absence of other specified parts of digestive tract; Z98.42 Cataract extraction status, left eye; Z98.41 Cataract extraction status, right eye; E87.6 Hypokalemia; Z88.6 Allergy status to analgesic agent
CPT/HCPCS: 36415; 71046; 74018; 80048; 83735; 840; 84132; 85025; 85027; 86850; 86900; 86901; 88309; 93005; 93010; 94640; 94799; A6266; J0131; J0330; J0694; J1100; J1170; J1650; J1741; J2250; J2270; J2370; J2405; J2704; J3010; J3480; J3490; J7050

== ENCOUNTER → 2018-09-18 | Day surgery (SDC) | payer BC ==
[2018-09-13 10:38] LABS: ABSOLUTE BASOPHILS # (AUTO) 0.1 10^3/uL (0.0-0.2); ABSOLUTE EOSINOPHILS # (AUTO) 0.2 10^3/uL (0.0-0.6); ABSOLUTE LYMPHOCYTES (AUTO) 4.7 10^3/uL (0.5-4.7); ABSOLUTE MONOCYTES (AUTO) 0.8 10^3/uL (0.1-1.4); ABSOLUTE NEUT (AUTO) 2.8 10^3/uL (1.7-8.2); BASOPHILS % (AUTO) 0.6 % (0-2); EOSINOPHILS % (AUTO) 2.4 % (0-6); HEMATOCRIT 44.6 % (37.9-51.0); HEMOGLOBIN 15.4 g/dL (13.5-17.0); LYMPHOCYTES % (AUTO) 55.3 % (13-45); MEAN CORPUSCULAR HEMOGLOBIN 30.8 pg (27.0-33.4); MEAN CORPUSCULAR HGB CONC 34.5 g/dL (32.0-36.0); MEAN CORPUSCULAR VOLUME 89 fl (80-97); MONOCYTES % (AUTO) 8.9 % (3-13); PLATELET COUNT 184 10^3/uL (150-450); RED BLOOD COUNT 4.98 10^6/uL (4.35-5.55); RED CELL DISTRIBUTION WIDTH 13.7 % (11.5-14.0); SEGMENTED NEUTROPHILS % (AUTO) 32.8 % (42-78); TOTAL CELLS COUNTED % (AUTO) 100 %; WHITE BLOOD COUNT 8.6 10^3/uL (4.0-10.5)
[2018-09-13 10:43] LABS: INTERNATIONAL RATION (INR) 1.07
[2018-09-13 10:44] LABS: PARTIAL THROMBOPLASTIN TIME 34.9 SEC (23.5-35.8)
[2018-09-13 10:56] LABS: ANION GAP 8 (5-19); BLOOD UREA NITROGEN 15 mg/dL (7-20); CALCIUM 9.6 mg/dL (8.4-10.2); CARBON DIOXIDE 25 mmol/L (22-30); CHLORIDE 106 mmol/L (98-107); GLUCOSE 105 mg/dL (75-110); POTASSIUM 4.4 mmol/L (3.6-5.0); SODIUM 139.4 mmol/L (137-145)
--- NOTE | 2018-09-13 20:02 | EKG REPORT ---
SEVERITY:- ABNORMAL ECG - SINUS RHYTHM LEFT VENTRICULAR HYPERTROPHY : Confirmed by: Sherry Salas MD 13-Sep-2018 20:02:01
[~2018-09-18] MED LIST changes: -CEFOXITIN SODIUM 2 GM in DEXTROSE 5%-WATER 100 ML IV PRN; +DEXAMETHASONE SOD PHOSPHATE INJ 4 MG/1 ML VIAL ONE; +DIPHENHYDRAMINE HCL 50 MG/ML VIAL IV PRN; +DOXYCYCLINE HYCLATE 100 MG in DEXTROSE 5%-WATER 250 ML IV PRN; +FENTANYL CITRATE INJ/PF 100 MCG/2 ML AMPUL IV PRN; +FENTANYL CITRATE INJ/PF 100 MCG/2 ML AMPUL ONE; +KETAMINE HCL INJ 500 MG/10 ML VIAL ONE; +LIDOCAINE 1%/EPINEPHRINE INJ 20 ML VIAL ONE; +LIDOCAINE 2% INJ-PF (20 MG/ML) 2 ML AMPUL ONE; +MIDAZOLAM 2 MG/2 ML INJ ONE; +ONDANSETRON HCL INJ/PF 4 MG/2 ML SDV IV PRN; +ONDANSETRON HCL INJ/PF 4 MG/2 ML SDV ONE; +POVIDONE-IODINE 5% OPH PREP SOLN 30 ML ONE; +PROMETHAZINE HCL INJ 25 MG/1 ML VIAL IV PRN; +PROPOFOL INJ 200 MG/20 ML VIAL IV ONE; +SODIUM BICARBONATE 8.4% INJ 50 MEQ/50 ML DISP.SYRIN ONE
--- NOTE | 2018-09-18 15:08 | Operative Report ---
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 Patient was brought into the operating room and placed on the operating room table in a supine position. Patient was then prepped with a Betadine scrub and Betadine solution and draped in a sterile and aseptic manner. The area was then marked. 12 O'clock was marked towards the nose 3 O'clock was marked towards the methodist 6:00 was marked towards the ear 9:00 was marked towards the mandible The area was then anesthetized with 1% lidocaine with epinephrine and bicarbonate for its anesthetic and hemostatic effects. The area was then excised and marked at 12:00. The specimen was sent for frozen section. The results came back that the deep and lateral margins were free. We had considered a primary closure but this would go against the natural relaxed skin tension lines. A primary closure would be too tight and would have increased chance of dehiscence. This will leave more of a scar so we decided to use a rotation flap reconstruction which would camouflage the scar better and take tension off of t he closure so that would be less chances of complications. It was felt that a rotation flap would allow us to put the closure within the relaxed skin tension line especially by the lateral canthal area. Also he had very thick tissue with poor mobility and this would allow us to transfer some of the forces of the closure along a different plane. Then we went ahead and outlined the flap and anesthetized it. We then incised the flap and developed a flap maintaining the subdermal plexus. Then we undermined 360 to allow for plate like scarring and minimize trap door deformity. Throughout the case hemostasis was achieved with the bipolar. We then sutured the flap into its new position using 4-0 Vicryl for the subcutaneous and deep dermis. Skin was closed with a running subcuticular suture stitch using 4-0 PDS with knots being tied on the outside. And 4-0 PDS suture was used for support and placed in the central area of the incision. We then applied tincture benzoin and Steri-Strips followed by a light pressure dressing. Patient was then reversed from anesthesia and taken to the [facility] for recovery. The patient tolerated well. There were no complications. Lesion size was approximately 1.5 cm please see pathology for actual size. Portions of this note may be dictated using DragPres[employer] voice recognition software. Occasional variations and spelling and vocabulary could be possible and are unintentional. Additionally, there is a chance that some errors may not be caught or corrected. Please notify the author of any discrepancies noted or if any statements are unclear. Subjective: No complaints Objective: Vital signs stable afebrile No bleeding Dressing intact Assessment and plan: Doing well. Elevate the operative site. Resume medications. Take antibiotics for 1 day Follow-up Full instructions were given to the patient and family and they understand Portions of this note may be dictated using [email or web address] voice recognition software. Occasional variations and spelling and vocabulary could be possible and are unintentional. Additionally, there is a chance that some errors may not be caught or corrected. Please notify the offer of any discrepancies noted or if any statements are unclear.
--- NOTE | 2018-09-18 15:09 | Discharge Summary ---
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 Leave the steri-strip tapes on for 5 days, then removal. Then cleaning wound with peroxide and apply Neosporin/bacitracin 3 times per day. Antibiotics for 1 day, then discontinue. Elevate operative area to decrease swelling. Do not strain, or lift heavy objects. Call for excessive bleeding, increased temperature of 101, uncontrolled pain, or excessive nausea or vomiting. You may reach Dr. Canales through his office at [phone]. In the event of an emergency after hours, then contact Dr. Canales through [facility]. Return to the office for a postop check on . The time will be scheduled by the nursing staff of [facility] prior to discharge. Please give the patient a copy of their labs and EKG so they can bring this to their PMD. Thank you Portions of this note may be dictated using Amiare voice recognition software. Occasional variations and spelling and vocabulary could be possible and are unintentional. Additionally, there is a chance that some errors may not be caught or corrected. Please notify the offer of any discrepancies noted or if any statements are unclear. Referrals: DYLAN EASTMAN MD [Primary Care Provider] - Discharge Diet: As Tolerated Discharge Activity: No Lifting/Push/Pulling Report the Following to Your Physician Immediately: Unusual Bleeding - Keep head elevated. No bending or straining.
[2018-09-18 17:12] VITALS: BP 156/62
== END ==
LOC: OROUT 11:03
PROVIDERS: ATTEND Plastic Surgery
DX: C44.329 Squamous cell carcinoma of skin of other parts of face (principal); I10 Essential (primary) hypertension; E03.9 Hypothyroidism, unspecified; E78.5 Hyperlipidemia, unspecified; R06.02 Shortness of breath; Z79.82 Long term (current) use of aspirin; Z79.899 Other long term (current) drug therapy; J44.9 Chronic obstructive pulmonary disease, unspecified; Z87.891 Personal history of nicotine dependence; Z85.038 Personal history of other malignant neoplasm of large intestine
CPT/HCPCS: 93005; 36415; 85025; 85610; 85730; 80048; 88305 ×2; 88331 ×2; 93010; 14040; J2250; J1100; J3490 ×6; J3010; J2405; J7060; J2704; 300; 88307

== ENCOUNTER → 2019-08-08 | Outpatient (CLI) | payer BC ==
[2019-08-08 08:25] LABS: ABSOLUTE BASOPHILS # (AUTO) 0.1 10^3/uL (0.0-0.2); ABSOLUTE EOSINOPHILS # (AUTO) 0.2 10^3/uL (0.0-0.6); ABSOLUTE LYMPHOCYTES (AUTO) 4.7 10^3/uL (0.5-4.7); ABSOLUTE MONOCYTES (AUTO) 0.9 10^3/uL (0.1-1.4); ABSOLUTE NEUT (AUTO) 2.7 10^3/uL (1.7-8.2); BASOPHILS % (AUTO) 0.8 % (0-2); EOSINOPHILS % (AUTO) 2.2 % (0-6); HEMATOCRIT 44.7 % (37.9-51.0); HEMOGLOBIN 15.7 g/dL (13.5-17.0); MEAN CORPUSCULAR HEMOGLOBIN 32.1 pg (27.0-33.4); MEAN CORPUSCULAR HGB CONC 35.2 g/dL (32.0-36.0); MEAN CORPUSCULAR VOLUME 91 fl (80-97); MONOCYTES % (AUTO) 10.1 % (3-13); PLATELET COUNT 194 10^3/uL (150-450); RED BLOOD COUNT 4.91 10^6/uL (4.35-5.55); RED CELL DISTRIBUTION WIDTH 13.9 % (11.5-14.0); SEGMENTED NEUTROPHILS % (AUTO) 31.9 % (42-78); TOTAL CELLS COUNTED % (AUTO) 100 %; WHITE BLOOD COUNT 8.5 10^3/uL (4.0-10.5)
[2019-08-08 08:44] LABS: ALBUMIN 4.2 g/dL (3.5-5.0); ALKALINE PHOSPHATASE 54 U/L (38-126); ANION GAP 7 (5-19); ASPARTATE AMINO TRANSFERASE 28 U/L (17-59); BILIRUBIN,TOTAL 0.7 mg/dL (0.2-1.3); BLOOD UREA NITROGEN 16 mg/dL (7-20); CALCIUM 10.1 mg/dL (8.4-10.2); CARBON DIOXIDE 25 mmol/L (22-30); CHLORIDE 106 mmol/L (98-107); CHOLESTEROL 167.23 mg/dL (0-200); GLUCOSE 127 mg/dL (75-110); POTASSIUM 4.1 mmol/L (3.6-5.0); TOTAL PROTEIN 7.7 g/dL (6.3-8.2); TRIGLYCERIDES 403 mg/dL (<150)
[2019-08-08 08:55] LABS: DIRECT LDL 81 mg/dL (<100)
== END ==
LOC: OD 07:28
PROVIDERS: ATTEND Internal Medicine
DX: I10 Essential (primary) hypertension (principal); E66.3 Overweight; E78.5 Hyperlipidemia, unspecified; E03.9 Hypothyroidism, unspecified; R35.1 Nocturia; R53.83 Other fatigue
CPT/HCPCS: 36415; 80053; 80061; 84153; 84403; 84443; 85025

== ENCOUNTER → 2019-11-05 | Outpatient (CLI) | payer BC ==
--- NOTE | 2019-11-05 11:25 | RADIOLOGY REPORT (SQ) ---
EXAM DESCRIPTION: CT LUNG CANCER SCREENING IMAGES COMPLETED DATE/TIME: 11/05/2019 10:06 am REASON FOR STUDY: Z87.891 PERSONAL HISTORY OF NICOTINE DEPENDENCE Z87.891 PERSONAL HISTORY OF NICOT INE DEPENDENCE Has the patient had a Chest CT scan within the past year? N Was the patient offered tobacco cessation counseling? N Was the patient engaged in shared decision making for this test? Y Does the patient have signs or symptoms of Lung Cancer? N Is the patient a smoker? N How many pack years? 40 How many years since quitting smoking? 15 Patients age: 64 COMPARISON: None. TECHNIQUE: Low Dose CT scan performed of the chest without intravenous contrast for purposes of scre ening for lung cancer. Images reviewed with lung, soft tissue and bone windows. Reconstructed coron al and sagittal MPR images reviewed. All images stored on PACS. All CT scanners at this facility use dose modulation, iterative reconstruction, and/or weight based d osing when appropriate to reduce radiation dose to as low as reasonably achievable (ALARA). [facility]: Dose Right [facility]: CareDose [facility]: Dose Right [facility]: Teradose 4D [facility]: Smart [place] [employer] Championship RADIATION DOSE: CT Rad equipment meets quality standard of care and radiation dose reduction techniq ues were employed. CTDIvol: NaN mGy. DLP: 0 mGy-cm. mGy. . LIMITATIONS: None FINDINGS: LUNGS AND PLEURA: No masses or nodules. No pleural effusions or calcifications. No pne umothorax. No scarring or interstitial changes. HILAR AND MEDIASTINAL STRUCTURES: No identified masses. No abnormal nodes. HEART AND VASCULAR STRUCTURES: No aortic aneurysm. No pericardial effusion. No cardiac devices. CORONARY ARTERY CALCIFICATIONS: No significant calcifications. UPPER ABDOMEN, THYROID, BONES, OTHER SOFT TISSUES: No significant findings. IMPRESSION: NO SIGNIFICANT FINDING IN THE LUNGS ON NON-CONTRASTED CHEST CT. NO OTHER CLINICALLY SIGNIFICANT/POTENTIALLY CLINICALLY SIGNIFICANT FINDINGS LUNGRADS: LUNGRADS: 1 NEGATIVE. NO NODULES, OR DEFINITELY BENIGN NODULES MODIFIER: NONE RECOMMENDATION: Continue annual screening with LDCT in 12 months. COMMENT: CRITERIA: No lung nodules. Nodules with specific calcifications: Complete, central, popcorn, concentric rings and fat containin g nodules. TECHNICAL DOCUMENTATION: JOB ID: [id number] Quality ID # [id number]: Final reports with documentation of one or more dose reduction techniques (e.g., Au tomated exposure control, adjustment of the mA and/or kV according to patient size, use of iterative reconstruction technique) 2010 [facility] [place] Radiology Reading location - IP/workstation name: [facility]-
== END ==
LOC: RAD 09:53
PROVIDERS: ATTEND Internal Medicine Pulmonary Disease
DX: Z12.2 Encounter for screening for malignant neoplasm of respiratory organs (principal); Z87.891 Personal history of nicotine dependence
CPT/HCPCS: G0297